=== PATIENT | female | born 1965 | race Caucasian/White ===

== ENCOUNTER → 2017-07-04 | Outpatient (CLI) | payer BC ==
[2017-07-04 13:35] VITALS: BP 135/93; PULSE 74; RESP 16; TEMP 98.1; BMI 37.5
--- NOTE | 2017-07-04 14:49 | P.BASOAP ---
Subjective Progress Note Date: 07/04/17 Principal diagnosis: Morbid obesity Patient had her sleeve gastrectomy in May 2013. Has been seeing me at [facility]. Last visit was in the fall. She has gained approximately 15-20 pounds since then. She has had increased stress at home. No recent lab work. Lately she has been on a high protein diet and seems to be doing better. Denies heartburn. No vomiting. Objective - Vital Signs Vital signs: Vital Signs Temp 98.1 F 07/04/17 13:31 Pulse 74 07/04/17 13:31 Resp 16 07/04/17 13:31 BP 135/93 07/04/17 13:31 Pulse Ox Intake & Output 07/03/17 07/04/17 07/04/17 18:59 06:59 18:59 Weight 87.26 kg - Exam Abdomen: Soft, nontender, nondistended Assessment/Plan (1) Morbid obesity Narrative/Plan: Continue high protein low-calorie diet. Check annual labs at this time. I did offer a dietary evaluation to the patient she is not interested at this time. Plan follow-up visit in 3 months. Plan: Date: 07/04/17 Initial Weight: 136.078 kg Initial BMI: 58.6 Current Weight: 87.26 kg Current BMI: 37.5 Type of Surgery: Total Volume in Band: Previous Volume: Volume Removed: Volume Added: Band Size:
[2017-07-04 14:51] LABS: HCT 40.7 % (34.0-46.0); HGB 13.5 gm/dL (11.4-16.0); MCHC 33.1 g/dL (31.0-37.0); MCV 87.5 fL (80.0-100.0); Mean Platelet Volume 7.4; Platelet Count 352 k/uL (150-450); RBC 4.66 m/uL (3.80-5.40); RDW 12.4 % (11.5-15.5)
[2017-07-04 15:10] LABS: ALT 19 U/L (9-52); AST 18 U/L (14-36); Albumin 4.3 g/dL (3.5-5.0); Alkaline Phosphatase 79 U/L (38-126); Anion Gap 11 mmol/L; Blood Urea Nitrogen 17 mg/dL (7-17); Calcium 9.8 mg/dL (8.4-10.2); Carbon Dioxide 30 mmol/L (22-30); Chloride 100 mmol/L (98-107); Glucose 82 mg/dL (74-99); Potassium 4.2 mmol/L (3.5-5.1); Sodium 141 mmol/L (137-145); Total Bilirubin 0.4 mg/dL (0.2-1.3); Total Protein 7.2 g/dL (6.3-8.2)
[2017-07-04 20:45] LABS: Folate, Serum 13.4 ng/mL; Vitamin D 25 Hydroxy 12.8 ng/mL (30.0-100.0)
== END | disposition home or self-care (01) ==
LOC: BARWHC3 13:22
PROVIDERS: ATTEND Surgery
DX: E66.01 Morbid (severe) obesity due to excess calories (principal); E55.9 Vitamin D deficiency, unspecified; Z68.37 Body mass index [BMI] 37.0-37.9, adult
CPT/HCPCS: 36415; 80053; 82306; 82607; 82746; 83540; 85027; 99211

== ENCOUNTER → 2018-03-20 | Outpatient (CLI) | payer BC ==
[2018-03-20 13:41] VITALS: BMI 38.2
--- NOTE | 2018-03-20 13:53 | P.BASOAP ---
Subjective Progress Note Date: 03/20/18 Principal diagnosis: Morbid obesity Patient here today for almost 5 year follow-up. Last visit in May of this year. Hungry at times. Not taking her vitamins with the exception of her vitamin D. She has had a lot of stress at home with her in-laws moving in. States her heartburn is well controlled with Zantac twice a day. She is now avoiding breads and nuts. No dysphagia. Her labs from last May were re- reviewed. Her vitamin D was quite low at that time. Patient met with dietitian today. She was at times taking in too much protein. Objective - Vital Signs Vital signs: Intake & Output 03/19/18 03/20/18 03/20/18 18:59 06:59 18:59 Weight 88.904 kg - Exam Abdomen: Soft, nontender, nondistended Assessment/Plan (1) Morbid obesity Narrative/Plan: Continue dietary and exercise regimen. Continue Zantac twice a day. Visit with dietitian again reviewed. We'll plan follow-up 3 months. We'll check annual labs at that time. Plan: Date: 03/20/18 Initial Weight: 136.078 kg Initial BMI: 58.6 Current Weight: 88.904 kg Current BMI: 38.2 Type of Surgery: Total Volume in Band: Previous Volume: Volume Removed: Volume Added: Band Size:
== END ==
LOC: BARWHC3 12:51
PROVIDERS: ATTEND Surgery
DX: E66.01 Morbid (severe) obesity due to excess calories (principal); Z68.38 Body mass index [BMI] 38.0-38.9, adult
CPT/HCPCS: 99211

== ENCOUNTER → 2020-08-04 | Outpatient (CLI) | payer BC ==
[2020-08-04 13:20] VITALS: PULSE 67; RESP 16; TEMP 98.3; BMI 38.7
--- NOTE | 2020-08-04 17:38 | P.BASOAP ---
Subjective Progress Note Date: 08/04/20 Principal diagnosis: Morbid obesity Patient here for recheck. Last seen January 2019. Patient has had a lot of stress at home. She has gained a little bit of weight. She is being evaluated for possible autoimmune disorder. She has had severe arthritis and pain in the left ankle and this has decreased her overall activity level. She is due for annual blood work. Some increased heartburn lately. Taking omeprazole every evening currently. She thinks she may be due for a colonoscopy. No dysphagia. Objective - Vital Signs Vital signs: Vital Signs Temp 98.3 F 08/04/20 13:07 Pulse 67 08/04/20 13:07 Resp 16 08/04/20 13:07 BP Pulse Ox Intake & Output 08/03/20 08/04/20 08/04/20 18:59 06:59 18:59 Weight 89.811 kg - Exam Abdomen: Soft, nontender, nondistended Assessment/Plan (1) Morbid obesity Narrative/Plan: Overall patient doing fairly well. We'll start taking Pepcid in the morning and omeprazole at night for now. Patient will consider upper and lower endoscopy. Check annual blood work. Follow-up 6 months. Plan: Date: 08/04/20 Initial Weight: 136.078 kg Initial BMI: 58.6 Current Weight: 89.811 kg Current BMI: 38.7 Type of Surgery: Total Volume in Band: Previous Volume: Volume Removed: Volume Added: Band Size:
== END ==
LOC: BARWHC3 12:47
PROVIDERS: ATTEND Surgery
DX: E66.01 Morbid (severe) obesity due to excess calories (principal); M19.90 Unspecified osteoarthritis, unspecified site; Z68.38 Body mass index [BMI] 38.0-38.9, adult; Z88.5 Allergy status to narcotic agent; Z91.040 Latex allergy status; Z91.048 Other nonmedicinal substance allergy status
CPT/HCPCS: 99211

== ENCOUNTER → 2022-07-12 | Outpatient (CLI) | payer OTHER ==
[2022-07-12 13:00] VITALS: BP 134/86; PULSE 73; RESP 16; TEMP 97.9; BMI 40.4
--- NOTE | 2022-07-12 14:17 | P.BASOAP ---
Subjective Progress Note Date: 07/12/22 Principal diagnosis: morbid obesity Patient returns for reevaluation. She has not been seen in the last 2 years. Last time that we saw her she was taking Pepcid in the morning and omeprazole at night. We had ordered annual lab work that she had not ever performed. Now she is taking Nexium twice daily along with Carafate. Having intermittent nausea and chronic reflux. Reflux seems to be worse. Some pain with eating. Pain is described in the mid chest region. She has gained 9 pounds. Patient has never had upper or lower endoscopy. Denies rectal bleeding or melena. Objective - Vital Signs Vital signs: Vital Signs Temp 97.9 F 07/12/22 12:57 Pulse 73 07/12/22 12:57 Resp 16 07/12/22 12:57 BP 134/86 07/12/22 12:57 Pulse Ox FiO2 Intake & Output 07/11/22 07/12/22 07/12/22 18:59 06:59 18:59 Weight 93.894 kg - Exam Abdomen: Soft, nontender, nondistended Assessment/Plan (1) GERD (gastroesophageal reflux disease) Narrative/Plan: 56-year-old female with persistent/worsening reflux. Patient also due for screening colonoscopy. Advise upper and lower endoscopy. This will be scheduled. Notify patient that annual lab work is very important to her. This was ordered at this time. She states she will have this done. Plan: Date: 07/12/22 Initial Weight: 136.078 kg Initial BMI: 58.6 Current Weight: 93.894 kg Current BMI: 40.4 Type of Surgery: Vertical Sleeve Gastrectomy Total Volume in Band: Previous Volume: Volume Removed: Volume Added: Band Size:
== END ==
LOC: BARWHC3 12:42
PROVIDERS: ATTEND Surgery
DX: E66.01 Morbid (severe) obesity due to excess calories (principal); K21.9 Gastro-esophageal reflux disease without esophagitis; Z68.41 Body mass index [BMI] 40.0-44.9, adult; Z91.048 Other nonmedicinal substance allergy status; Z88.5 Allergy status to narcotic agent; Z91.040 Latex allergy status
CPT/HCPCS: 99211

== ENCOUNTER → 2022-07-12 | Outpatient (CLI) | payer OTHER ==
[2022-07-13 02:29] LABS: HCT 41.7 % (37.2-46.3); HGB 12.7 g/dL (12.0-15.0); MCHC 30.5 g/dL (32.0-37.0); MCV 91.9 fL (80.0-97.0); Mean Platelet Volume 10.2 fL (9.5-12.2); NRBC Per 100 WBC 0 /100 WBCS (0.0-0.0); Platelet Count 364 X 10*3/uL (140-440); RBC 4.54 X 10*6/uL (4.10-5.20); RDW 13.8 % (11.5-14.5)
[2022-07-13 02:40] LABS: ALT 16 U/L (8-44); AST 14 U/L (13-35); African American GFR (CKD) 92.9 (60.0-200.0); Albumin 4.1 g/dL (3.8-4.9); Albumin/Globulin Ratio 1.52 (1.60-3.17); Alkaline Phosphatase 82 U/L (41-126); BUN/Creat Ratio 22.46 Ratio (12.00-20.00); Blood Urea Nitrogen 18.6 mg/dL (9.0-27.0); Calcium 9.5 mg/dL (8.7-10.3); Carbon Dioxide 27.6 mmol/L (20.0-27.5); Chloride 105 mmol/L (96-109); Globulin 2.7 g/dL (1.6-3.3); Glucose 90 mg/dL (70-110); Iron 33 ug/dL (50-170); Non-African American GFR(CKD) 80.2 (60.0-200.0); Potassium 4.4 mmol/L (3.5-5.5); Sodium 143 mmol/L (135-145); Total Bilirubin <0.15 mg/dL (0.30-1.20); Total Protein 6.8 g/dL (6.2-8.2)
== END | disposition home or self-care (01) ==
LOC: LABWHC1 14:03
PROVIDERS: ATTEND Surgery
DX: E55.9 Vitamin D deficiency, unspecified (principal); K90.89 Other intestinal malabsorption
CPT/HCPCS: 36415; 80053; 82306; 82607; 82746; 83540; 84425; 85027

== ENCOUNTER 2022-08-16 10:52 | Day surgery (SDC) | payer OTHER ==
[2022-08-12 13:53] VITALS: BMI 40.4
[~2022-08-16 10:52] MED LIST: LACTATED RINGERS 1,000 ML IV SCH
[2022-08-16 12:00] VITALS: RESP 16; TEMP 97.8
[2022-08-16] MEDS ORDERED: ONDANSETRON 4 MG/2 ML VIAL ONE (12:04)
[2022-08-16] MEDS ORDERED: ONDANSETRON 4 MG/2 ML VIAL IVP ONE ×2 (12:08)
[2022-08-16] MEDS ORDERED: PROPOFOL 10 MG/ML 20 ML VIAL IV ONE (12:26)
[2022-08-16] MEDS ORDERED: LIDOCAINE 2% INJ 20 MG/ML (2 ML VIAL) ONE (12:26)
--- NOTE | 2022-08-16 12:29 | P.GSHP ---
History of Present Illness H&P Date: 08/16/22 Chief Complaint: GERD, screening, history of polyps 57-year-old female known to our service. Patient here for upper and lower endoscopy. Patient complains of chronic reflux after previous sleeve gastrectomy. Patient now states she did have a colonoscopy years ago and was told she had polyps. No family history of colon cancer. No bowel complaints. Past Medical History Past Medical History: GERD/Reflux Additional Past Medical History / Comment(s): narcolepsy History of Any Multi-Drug Resistant Organisms: MRSA Date of last positivie culture/infection: leg 2019 MDRO Source:: leg Past Surgical History: Bariatric Surgery, Cholecystectomy, Hysterectomy Additional Past Surgical History / Comment(s): sleeve gastrectomy 2013 Past Anesthesia/Blood Transfusion Reactions: No Reported Reaction Smoking Status: Never smoker - Past Family History Mother Family Medical History: Cancer Additional Family Medical History / Comment(s): small cell lung cancer, lymphoma, bladder Sister(s) Family Medical History: Myocardial Infarction ([place]) Medications and Allergies Home Medications Medication Instructions Recorded Confirmed Type Omeprazole 20 mg PO DAILY 07/04/17 08/12/22 History Cetirizine HCl [Zyrtec] 10 mg PO DAILY 03/20/18 08/12/22 History Dupilumab [Dupixent Pen] 300 mg SQ [id number] 08/12/22 08/12/22 History Sucralfate [Carafate] 1 gm PO BID 08/12/22 08/12/22 History Allergies Allergy/AdvReac Type Severity Reaction Status Date / Time adhesive Allergy Rash/Hives Verified 08/16/22 11:54 codeine Allergy Anaphylaxis Verified 08/16/22 11:54 latex Allergy Rash/Hives Verified 08/16/22 11:54 Surgical - Exam Vital Signs Temp Pulse Resp BP Pulse Ox 97.8 F 83 16 155/86 94 L 08/16/22 11:59 08/16/22 11:59 08/16/22 11:59 08/16/22 11:59 08/16/22 11:59 Physical exam: General: Well-developed, well-nourished HEENT: Normocephalic, sclerae nonicteric Abdomen: Nontender, nondistended Extremities: No edema Neuro: Alert and oriented Assessment and Plan (1) GERD (gastroesophageal reflux disease) Narrative/Plan: Will proceed with upper and lower endoscopy Current Visit: No Status: Acute Code(s): K21.9 - GASTRO-ESOPHAGEAL REFLUX DISEASE WITHOUT ESOPHAGITIS SNOMED Code(s): 261913099
--- NOTE | 2022-08-16 12:49 | P.PCN ---
Date of Procedure: 08/16/22 Procedure(s) Performed: PREOPERATIVE DIAGNOSIS: GERD, screening, history of polyps POSTOPERATIVE DIAGNOSIS: Mild gastritis, small hiatal hernia, mild distal esophagitis, ascending colon polyp, sigmoid polyp PROCEDURE: 1. EGD with biopsy 2. Colonoscopy with snare polypectomy and biopsy ANESTH[place]: [facility] [place]ON: Neftali Beck M.D. SPECIMENS: Antrum, distal esophagus, polyps ENDOSCOPIC PROCEDURE: The patient was on the endoscopy table in the left decubitus position. The Olympus gastroscope was inserted into the oropharynx and passed under direct visualization to the region of the third portion of the duodenum. From that point the scope was slowly withdrawn inspecting all surfaces carefully. There were no neoplastic inflammatory or polypoid lesions throughout the duodenum. The pylorus was widely patent. The stomach was carefully inspected. There was mild gastritis. A biopsy of the antrum took place to rule out H. pylori. The patient sleeve gastrectomy appeared normal. There was a small hiatal hernia seen with the GE junction present 1.5 cm above the diaphragmatic hiatus. There was mild distal esophagitis with a few small linear erosions present. Biopsies were taken. The remainder the esophagus appear normal. The patient was kept on the endoscopy table in the left decubitus position. The Olympus colonoscope was inserted into the anus and passed under direct visualization to the base of the cecum. The appendiceal orifice was visualized. From that point the scope was slowly withdrawn inspecting all surfaces carefully. There were no neoplastic inflammatory or polypoid lesions throughout the cecum. In the ascending colon a small polyp was seen and removed using the cold biopsy forceps. The remainder of the ascending transverse and descending appeared normal. The sigmoid colon a small polyp was seen and removed using the snare with cautery technique. The remainder of the sigmoid and rectum was normal. There was no visible diverticulosis. Digital rectal examination was normal. The patient was taken to the recovery room in stable condition per anesthesia guidelines. RECOMMENDATIONS: Await biopsy results. Anticipate repeat colonoscopy 5 years. Continue antiacid therapy.
[2022-08-16] MEDS ORDERED: ACETAMINOPHEN TAB 500 MG TAB PO ONE (13:20)
[2022-08-16] MEDS ORDERED: ACETAMINOPHEN TAB 500 MG TAB ONE (13:20)
[2022-08-16 13:53] VITALS: BP 118/86; PULSE 66
== END 2022-08-16 13:54 | disposition home or self-care (01) ==
LOC: ORWHC2ENDO 10:52
PROVIDERS: ATTEND Surgery
DX: Z12.11 Encounter for screening for malignant neoplasm of colon (principal); K29.50 Unspecified chronic gastritis without bleeding; D12.2 Benign neoplasm of ascending colon; D12.5 Benign neoplasm of sigmoid colon; K44.9 Diaphragmatic hernia without obstruction or gangrene; K21.00 Gastro-esophageal reflux disease with esophagitis, without bleeding; Z98.84 Bariatric surgery status; Z86.010 Personal history of colon polyps; Z90.49 Acquired absence of other specified parts of digestive tract; Z90.710 Acquired absence of both cervix and uterus; Z82.49 Family history of ischemic heart disease and other diseases of the circulatory system; Z80.1 Family history of malignant neoplasm of trachea, bronchus and lung; Z88.5 Allergy status to narcotic agent; Z91.048 Other nonmedicinal substance allergy status; Z91.040 Latex allergy status
CPT/HCPCS: 88305; 45380; 45385; 43239; J2405; J2704; J2001